=== PATIENT | male | born 2000 | race Caucasian/White ===

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

== ENCOUNTER 2023-09-22 07:51 | Day surgery (SDC) | payer OTHER, SELFPAY ==
--- NOTE | 2023-09-22 | IMM_PTH ---
PATHOLOGY RESULTS PATIENT: SANDRA SHCMITT LOC: [facility] [place] U#:[id number] AGE/SX: 23/M ROOM: RE09/22/[address]: Dr. Priscila Tam MD : 2000 BED: DIS: 09/22/2023 SPEC #: [id number] RECD: 09/25/23 14:01 STATUS: RUDDY REQ #: [id number] CASTRO: 09/22/23 00:[address]: Priscila Tam DEPT: IMMUNOHISTOCHEMISTRY RECD BY: Lotus Vázquez ENTERED: 09/25/23 14:02 SP TYPE: IMMUNO OTHR DR: Dr. Mary Jason DO Tissues: Skin of forehead Procedures: SMA (add) CALPONIN-1 (add) CEA (add) DESMIN (add) JOCELINE (add) P53 (add) Pankeratin (initial) GATA3 (add) P40 (add) NSE (add) S-100 (add) PHYSICIAN & INSTITUTION [address] [address] SPECIMEN INFORMATION: Tissue Source: Subcutaneous neoplasm of forehead Clinical Info: Subcutaneous neoplasm of forehead Specimen Number: [id number] CPT code: 61450, 57099 x10 METHODOLOGY: Deparaffinized sections of prefer/formalin-fixed tissue or PAP/DQ stained slides are incubated with monoclonal/polyclonal antibodies/oligonucleotide probes. Localization is made via biotin free immunoperoxidase method. Appropriate controls are performed and reacted as expected. Results on target cell population are indicated in the following table: RESULTS: ANTIBODY / CLONE RESULT AE1-3 (AE1/AE3/PCK26) positive GATA3 (L50-823) positive, rare Calponin-1 (NE610C) negative, focal Actin (1A4) positive, dim Desmin (CE-R-11) negative S-100 (4C4.9) negative NSE Neuron Specific Enolase negative P40 (BC28) positive JOCELINE (E29) positive, focal CEA (11-7/TF-3HB-1) positive, focal P53 (DO-7) positive, wild type pattern These tests were developed and their performance characteristics determined by [facility]. They may not have been cleared or approved by the U.S. Food and Drug Administration. The FDA has determined that such clearance or approval is not necessary. The above immunohistochemical/dualISH markers are ordered and reviewed by the Pathologist. INTERPRETATION: Subcutaneous neoplasm of forehead, biopsy: Consistent with chondroid syringoma. AM:lindsey 09/26/2023 Case has been reviewed in consultation with Dr. Smith who concurs with the above diagnosis. IDC:[email or web address]
--- NOTE | 2023-09-22 | LES_PTH ---
PATHOLOGY RESULTS PATIENT: SANDRA SCHMITT LOC: [facility] [place] U#:[id number] AGE/SX: 23/M ROOM: RE09/22/[address]: Dr. Priscila Tam MD : 2000 BED: DIS: 09/22/2023 SPEC #: [id number] RECD: 09/22/23 13:18 STATUS: RUDDY JASON #: [id number] CASTRO: 09/22/23 00:[address]: Priscila Tam DEPT: SURGICAL PATHOLOGY RECD BY: Glenn Gustafson ENTERED: 09/22/23 13:19 SP TYPE: Lesion OTHR DR: Dr. Mary Jason, DO Tissues: Skin of forehead Procedures: Surgery Specimen Level IV HEADER OPERATION: Excision subcutaneous mass forehead (1.5 cm) PRE-OP DIAGNOSIS: Neoplasm of face TISSUE SUBMITTED: Subcutaneous mass forehead MICROSCOPIC DIAGNOSIS Subcutaneous neoplasm of forehead, biopsy: Consistent with chondroid syringoma. See comment. AM:lindsey 09/25/2023 COMMENT Immunohistochemistry ([id number]) supports the above diagnosis. Case has been reviewed in consultation with Dr. Smith who concurs with the above diagnosis. IDC:[email or web address] MICROSCOPIC DESCRIPTION Slides are reviewed. GROSS DESCRIPTION Received in fixative is one container labeled with the patient's name and designated subcutaneous mass forehead. The specimen consists of a piece of skin with underlying tissue. The skin piece measures 1.0 x 0.3 cm and the underlying tissue measures 0.7 x 0.6 x 0.6 cm. The specimen is inked, bisected and submitted entirely in one cassette. / ANJELICA:lindsey 09/24/2023 TC:1 CPT: 61830
--- OUTSIDE RECORDS SUMMARY | 2023-09-22 08:02 | XMS RPT_ITS | CCD ---
Author Name Unknown Address [address] [place] [address] [facility] [address] [place] [id number] Organization [facility] Care Team Providers Care Brick Off Bearer Name Role Phone Mary Jason DO Unavailable Olivia Mcclellan MA Unavailable Unavailable Rajeev Palomo LPN Unavailable Unavailable Unavailable Unavailable Roman Brown CMA Unavailable Unavailable Mary Jason DO Attending Unavailable Mary Jason DO Consulting Unavailable Medications Completed/Discontinued Medications Medication Drug Class(es) Dates Sig (Normalized) Sig (Original) amoxicillin 875 mg / clavulanate 125 mg oral tablet (1 source) Penicillin-class Antibacterial Start: 11-09-2022 take 1 tablet by mouth twice daily amoxicillin-pot clavulanate 875-125 mg oral tablet 1 (one) tablet bid for 0 days Quantity: 20 {Tablet} Refills: 0 Ordered: 09-Nov-2022 Mary Jason DO, DO, Kathleen Start : 09-Nov-2022 Active Problems Active Problems Problem Classification Problem Date Documented Da te Episodic/Chronic Conditions associated with dizziness or vertigo (6 sources) Dizziness; Translations: [Dizzy] 08-11-2022 Episodic Malaise and fatigue (6 sources) Fatigue; Translations: [Fatigue] 08-11-2022 Episodic Nutritional deficiencies (2 sources) Vitamin D deficiency; Translations: [Vitamin D deficiency] 11-09-2022 Chronic Other hematologic conditions (2 sources) ESR raised; Translations: [Elevated erythrocyte sedimentation rate] 11-09-2022 Episodic Other nutritional; endocrine; and metabolic disorders (7 sources) Body mass index 40+ - severely obese; Translations: [BMI 40.0-44.9, adult] 08-11-2022 Chronic Other nutritional; endocrine; and metabolic disorders (6 sources) Obesity; Translations: [Other obesity] 08-11-2022 Chronic Other screening for suspected conditions (not mental disorders or infectious disease) (2 sources) Elevated C-reactive protein; Translations: [CRP elevated] 11-09-2022 Episodic Other upper respiratory infections (2 sources) Acute sinusitis; Translations: [Sinusitis, acute] 11-09-2022 Episodic Residual codes; unclassified (7 sources) Non-smoker; Translations: [Nonsmoker] 08-11-2022 Episodic Past or Other Problems Problem Classification Problem Date Documented Da te Episodic/Chronic Unclassified (5 sources) Results Test Name Value Interpretation Reference Range Facil ity Vital Signs Date Time Vital Sign Value Performing Clinician Facility 11-09-2022 14:09-0500 Body height 165.1 cm Mary Jason DO Work Phone: [facility] Work Phone: 11-09-2022 14:09-0500 Body mass index (BMI) [Ratio] 38.29 kg/m2 Mary Jason DO Work Phone: [facility] Work Phone: 11-09-2022 14:09-0500 Body surface area Derived from formula 2.1 m2 Mary Jason DO Work Phone: [facility]; [facility] Work Phone: 11-09-2022 14:09-0500 Body temperature 96.4 [degF] Mary Jason DO Work Phone: [facility] Work Phone: Encounters Encounter Date Encounter Type Care Provider Facility Start: 01-03-2023 ambulatory Mary Jason DO [facility] Start: 11-09-2022 End: 11-09-2022 Office outpatient visit 15 minutes Mary Jason DO Work Phone: [facility] Start: 08-11-2022 End: 08-11-2022 Initial preventive medicine new pt age 18-39yrs Mary Jason DO Work Phone: [facility] Start: 08-11-2022 End: 08-11-2022 Patient encounter status Mary Jason DO Work Phone: [facility] Start: 08-11-2022 Review Mary waller DO Work Phone: [facility] Patient encounter status Mary Jason DO Work Phone: [facility] Work Phone: Patient encounter status Roman Brown CMA [facility] Work Phone: Procedures Date Procedure Procedure Detail Performing Clinician Tonsillectomy Rajeev LEVI Plan of Treatment Date Care Activity Detail Author Start: 11-09-2022 C-reactive protein C-REACTIVE PROTEIN (75811) [facility] Work Phone: Start: 11-09-2022 Sedimentation rate rbc non-automated ESR-F (SED RATE ERYTHROCYTE - MALE) (17233) [facility] Work Phone: Start: 11-09-2022 25 hydroxy includes fractions if performed CALCIFEDIOL (89762) [facility] Work Phone: Start: 11-09-2022 Procedure Education Eprescribed prescriptions (G8553) [facility] Work Phone: Start: 11-09-2022 Provider Instructions for Treatment Reviewed Lab [facility]; [facility] Work Phone: Start: 08-11-2022 Procedure Education Eprescribed prescriptions (G8553) [facility] Work Phone: Start: 08-11-2022 Hemoglobin glycosylated a1c HGB A1C (84667) [facility]; [facility] Work Phone: Start: 08-11-2022 25 hydroxy includes fractions if performed CALCIFIDIOL (75112) VIT D 25 [facility]; [facility] Work Phone: Start: 08-11-2022 Cyanocobalamin vitamin b-12 VITAMIN B-12 (CYANOCOBALAMIN) (07511) [facility]; [facility] Work Phone: Start: 08-11-2022 Assay of thyroid stimulating hormone tsh TSH (11045) [facility]; [facility] Work Phone: Start: 08-11-2022 Sedimentation rate rbc non-automated SED RATE ERYTHROCYTE (47560) [facility]; [facility] Work Phone: Start: 08-11-2022 C-reactive protein C-REACTIVE PROTEIN (23031) [facility]; [facility] Work Phone: Start: 08-11-2022 Comprehensive metabolic panel METABOLIC PANEL, COMPREHENSIVE (00291) [facility]; [facility] Work Phone: Start: 08-11-2022 Blood count complete automated CBC (AUTO) (70459) [facility]; [facility] Work Phone: Start: 08-11-2022 Lipid panel LIPID PANEL (80145) [facility] Work Phone: Payers Date Payer Category Payer Unknown [id number] 2000 Unknown [id number] Unknown [employer] Social History Date Type Detail Facility Caffeine Use Caffeine Use [facility] Work Phone: Instructions Note Date & Type Note Facility [facility] Work Phone: Instructions Note Date & Type Note Facility [facility] Work Phone: Instructions Note Date & Type Note Facility [facility] Work Phone: Summary Purpose Family History No Family History Records FoundUnknown Family Member Name Dates Details Heart/Lung Disease- Father Status:Active High Chol- Father Status:Active Thyroid- Mother Status:Active Unknown Family Member Name Dates Details Heart/Lung Disease- Father Status:Active High Chol- Father Status:Active Thyroid- Mother Status:Active Unknown Family Member Name Dates Details Heart/Lung Disease- Father Status:Active High Chol- Father Status:Active Thyroid- Mother Status:Active Advance Directives No Advanced Directives Records FoundNo Advanced Directives Records Found Additional Source Comments (unrecognized sect ion and content) No Status Records FoundNo Status Records Found INFORMATION SOURCE (unrecogn ized section and content) DATE CREATED AUTHOR AUTHOR'S DAMON ATION 01/04/2023 [facility] FOR RECORDS PERTAINING TO PATIENTS WHO ARE OR HAVE BEEN ENROLLED IN A CHEMICAL DEPENDENCY/SUBSTANCEABUSE PROGRAM, SOME INFORMATION MAY BE OMITTED. This clinical summary was aggregated from multiple sources. Caution should be exercised in using it in the provision of clinical care. This summary normalizes information from multiple sources, and as a consequence, information in this document may materially change the coding, format and clinical context of patient data. In addition, data may be omitted in some cases. CLINICAL DECISIONS SHOULD BE BASED ON THE PRIMARY CLINICAL RECORDS. [employer] [facility]. provides no warranty or guarantee of the accuracy or completeness of information in this document.
[2023-09-22 08:27] VITALS: BP 129/61; PULSE 54; RESP 16; TEMP 36.3; O2SAT 98; BMI 35.9
--- NOTE | 2023-09-22 08:57 | PCM.HP.BLA ---
History and Physical Date of Admission: 09/22/23 The patient is examined and there are no changes to the previous exam dated 09/13/23. He has a mass on his forehead and is here for excision of the mass with submission for pathologic evaluation. 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
[2023-09-22 09:29] VITALS: BP 116/62; BP 119/43; O2SAT 100; O2SAT 98; O2SAT 99
[2023-09-22] MEDS: Lidocaine 1% /Epi 1:100 9 ML, Sodium Bicarbonate 1 MEQ OPERA.SITE (09:30)
--- NOTE | 2023-09-22 10:11 | DCINST_ITS ---
Discharge Instructions Dressing / Incision Additional Dressing/Incision Instructions:: Keep your back elevated (recliner position) for the next 3 to 4 days to reduce swelling in bruising. Thank take the oral antibiotic (Keflex) 2 times a day until finished. Keep the Steri-Strips dry. Do not remove until seen in the office. If they would fall off, apply a thin layer of antibiotic ointment. Follow Up Care Please Follow Up With: Priscila Tam MD When: In 2 weeks for follow-up Test Results: Test results from this visit will be discussed in further detail at your follow- up appointment, if applicable. Discharge Plan Admission Attending Provider: Priscila Tam Primary Care Provider: Mary Jason Discharge Orders/Prescriptions Prescriptions: No Action NK Referrals / Follow Up: Mary Jason DO [Primary Care Provider] - Disposition Disposition (needs filled in before D/C Order can be placed): Home, Self Care
--- NOTE | 2023-09-22 10:14 | PCM.OPRPT ---
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 He presents for excision of the mass with submission for pathologic evaluation. The patient was brought to the operating room and placed on the operating room table in supine position. The face is prepped and draped in the usual sterile fashion. 1% Xylocaine with epinephrine with sodium bicarb is injected in the periphery of the mass. Initially began with making an elliptical incision over top of the mass. The incision is carried down through the subcutaneous tissue and the mass is carefully enucleated from its bed. Hemostasis is controlled with cautery. The site is then closed using a Monocryl suture in the subcutaneous tissue and dermis in a [id number]-[id number] fashion. Skin edges were approximated with a running subcuticular Monocryl suture. Further refinement the closure was done with a fast-absorbing gut. Dermabond and Steri-Strips were placed on the site. He tolerated the procedure well was taken to the recovery area in an awake and stable condition. Needle and sponge counts are correct. Complications None Admit VTE Documentation VTE Mechan Device Prophylaxis: None Reason prophylaxis not ordered:: Treatment Not Indicated
[2023-09-22 10:24] VITALS: BP 127/86; BP 129/61; PULSE 61; RESP 17; TEMP 36.5; O2SAT 98
== END 2023-09-22 10:50 | disposition home or self-care (01) ==
LOC: SDC 07:59 → AC 08:00
PROVIDERS: PCP Internal Medicine; Referring Provider Plastic Surgery; Visit Provider Plastic Surgery
PROC: (CPT 11642; principal; 2023-09-22 09:10)
DX: C44.309 Unspecified malignant neoplasm of skin of other parts of face (principal)
CPT/HCPCS: 11642; 88305; 88341; 88342